=== PATIENT | female | born 1945 | race Caucasian/White ===

== ENCOUNTER → 2017-10-28 | Outpatient (CLI) | payer MEDICARE ==
[2017-10-28 09:23] LABS: BUN 15 mg/dL (7-18)
[2017-10-28 09:31] LABS: GFR (ESTIMATED) 62 ML/MIN (59-)
== END ==
LOC: LAB 08:08
PROVIDERS: Nurse Practitioner Family
DX: I10 Essential (primary) hypertension (principal); E78.5 Hyperlipidemia, unspecified